=== PATIENT | male | born 1985 | race Caucasian/White ===

== ENCOUNTER 2017-03-27 17:50 | Emergency (ER) | payer BC, OTHER ==
[2017-03-27] MEDS ORDERED: DIPH/PERTUSS(ACELL)/TETANUS VAC/PF 0.5 ML SYR (>=10YO) IM ONE (19:24)
[2017-03-27] MEDS ORDERED: AMOXICILLIN TRIHYD 250 MG CAPSULE PO ONE (19:28)
[2017-03-27] MEDS ORDERED: AMOXICILLIN TR/POT CLAVULANATE 500-125 MG TAB PO ONE (19:28)
[2017-03-27] MEDS ORDERED: RABIES IMMUNE GLOBULIN INJ/PF 300 UNIT/2 ML SDV IM ONE (19:28)
[2017-03-27] MEDS ORDERED: RABIES VACCINE (PCEC)/PF 2.5 UNIT/1 ML KIT IM ONE (19:28)
[2017-03-27] MEDS ORDERED: IBUPROFEN 800 MG TABLET PO ONE (19:28)
--- NOTE | 2017-03-27 19:31 | ER Document Report ---
HPI - HPI Patient complains to provider of: raccoon bite Onset: Other - 4 days ago Onset/Duration: Sudden Quality of pain: No pain Pain Level: Denies Context: Pt states that he was attempting to rescue a dog that was being attacked by a raccoon. Patient then remove the raccoon and shot it. Animal control states that the recommended test positive for rabies. Patient was bit to the right wrist area. Patient states that animal control advised him that he will need to come here for the rabies vaccination series. 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 IN LAST 30 DAYS: No - HEENT HEENT: Atraumatic, Normocephalic - NECK Neck: Normal Inspection - RESPIRATORY Respiratory: Breath Sounds Normal, No Respiratory Distress O2 Sat by Pulse Oximetry: 98 - CARDIOVASCULAR Cardiovascular: Regular Rate, Regular Rhythm, No Murmur - BACK Back: Normal Inspection - MUSCULOSKELETAL/EXTREMETIES Musculoskeletal/Extremeties: MAEW, FROM - NEURO Level of Consciousness: Awake, Alert, Appropriate Motor/Sensory: No Motor Deficit - DERM Integumentary: Warm, Dry Notes: PW with abrasion to right lateral wrist with small amount of erythema surrounding wound Course - Vital Signs Vital signs: Temp Pulse Resp BP Pulse Ox 97.9 F 84 18 126/77 H 98 03/27/17 17:55 03/27/17 17:55 03/27/17 17:55 03/27/17 17:55 03/27/17 17:55 Discharge - Discharge Clinical Impression: Exposure to rabies Raccoon bite Qualifiers: Encounter type: initial encounter Qualified Code(s): W55.51XA - Bitten by raccoon, initial encounter Condition: Stable Disposition: HOME, SELF-CARE Instructions: Animal Bites ([facility]), Augmentin ([facility]), Rabies Prophyllaxis ([facility]), Tetanus Immunization Given ([facility]) Additional Instructions: Return immediately for any new or worsening symptoms Followup with your primary care provider, call tomorrow to make a followup appointment Return March 30, April 03 and April 10 for repeat rabies vaccination Prescriptions: Amox Tr/Potassium Clavulanate [Augmentin 875-125 Tablet] 1 tab PO BID 7 Days Forms: Return to Work Referrals: [facility] [NO LOCAL MD] - Follow up as needed [facility] [Provider Group] - Follow up as needed
[2017-03-27 20:59] VITALS: BP 135/80
== END 2017-03-27 20:55 | disposition home or self-care (01) ==
LOC: ER 17:50
DX: S61.551A Open bite of right wrist, initial encounter (principal); Z20.3 Contact with and (suspected) exposure to rabies; W55.51XA Bitten by raccoon, initial encounter
CPT/HCPCS: 99283; 96372; 90471 ×2; 90715; 90675; 90376; J3490